=== PATIENT | male | born 1995 | race Caucasian/White ===

== ENCOUNTER 2020-09-29 10:42 | Emergency (ER) | payer OTHER, SELFPAY ==
--- NOTE | ~2020-09-29 | XR_ITS ---
EXAMINATION: XR lumbar spine min 4V DATE: 09/29/2020 11:31 INDICATION: Low back pain. TECHNIQUE: 5 views of lumbar spine were obtained. COMPARISON: None. FINDINGS: There is 6 degrees dextrocurvature of lumbar spine. Vertebral body heights and intervertebr al disc heights are normal. The facet joints are unremarkable. IMPRESSION: 1. Lumbar dextrocurvature. Reviewed, dictated and finalized at location A. [employer] IMPRESSION: 1. Lumbar dextrocurvature.
[2020-09-29 11:00] VITALS: BP 131/83; PULSE 81; RESP 16; TEMP 37; O2SAT 100
[2020-09-29 11:08] VITALS: BP 131/83; PULSE 81; RESP 16; TEMP 37; O2SAT 100
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
== END 2020-09-29 11:45 | disposition home or self-care (01) ==
PROVIDERS: Emergency Provider Nurse Practitioner Family
DX: G89.29 Other chronic pain (principal); M54.5 Low back pain
CPT/HCPCS: 72110; 99213; G0463